=== PATIENT | female | born 1945 | race Caucasian/White ===

== ENCOUNTER 2021-03-13 10:38 | Emergency (ER) | payer MEDICARE ==
[2021-03-13 14:28] LABS: HEMOGLOBIN 14.4 gm/dl (12.3-15.3); RED BLOOD COUNT 4.75 M/UL (4.00-5.10)
[2021-03-13 15:10] LABS: BUN/CREATININE RATIO 22 (0-10)
[2021-03-13] MEDS ORDERED: VIBRAMYCIN 100100 MG PO (16:49)
== END 2021-03-13 17:35 | disposition home or self-care (01) ==
LOC: ER1 10:38
PROVIDERS: Emergency Medicine
DX: E11.628 Type 2 diabetes mellitus with other skin complications (principal); L08.9 Local infection of the skin and subcutaneous tissue, unspecified; I10 Essential (primary) hypertension
CPT/HCPCS: 73630; 80053; 85025; 85652; 86140; 87040; 96374; 96375; 99283; J3370; J7070

== ENCOUNTER → 2021-03-23 | Outpatient (CLI) | payer MEDICARE ==
[~2021-03-23] MED LIST: VIBRAMYCIN 100100 MG PO
== END | disposition home or self-care (01) ==
LOC: WCC 15:30
PROC: 0JBR0ZZ Excision of Left Foot Subcutaneous Tissue and Fascia, Open Approach (ICD-10-PCS; principal; 2021-03-23)
DX: E11.621 Type 2 diabetes mellitus with foot ulcer (principal); L97.522 Non-pressure chronic ulcer of other part of left foot with fat layer exposed; E11.40 Type 2 diabetes mellitus with diabetic neuropathy, unspecified; E11.36 Type 2 diabetes mellitus with diabetic cataract; H26.9 Unspecified cataract; H40.9 Unspecified glaucoma; I10 Essential (primary) hypertension; R26.2 Difficulty in walking, not elsewhere classified; Z88.0 Allergy status to penicillin; Z88.2 Allergy status to sulfonamides; Z87.891 Personal history of nicotine dependence; Z79.4 Long term (current) use of insulin; Z79.2 Long term (current) use of antibiotics; Z79.899 Other long term (current) drug therapy; Z92.3 Personal history of irradiation

== ENCOUNTER → 2021-03-30 | Outpatient (CLI) | payer MEDICARE | END | disposition home or self-care (01) | LOC: WCC 09:37 | PROC: 0JBR0ZZ Excision of Left Foot Subcutaneous Tissue and Fascia, Open Approach (ICD-10-PCS; principal; 2021-03-30) | DX: E11.621 Type 2 diabetes mellitus with foot ulcer (principal); L97.522 Non-pressure chronic ulcer of other part of left foot with fat layer exposed; E11.40 Type 2 diabetes mellitus with diabetic neuropathy, unspecified; E11.36 Type 2 diabetes mellitus with diabetic cataract; H26.9 Unspecified cataract; H40.9 Unspecified glaucoma; I10 Essential (primary) hypertension; Z79.2 Long term (current) use of antibiotics; Z79.84 Long term (current) use of oral hypoglycemic drugs; Z79.899 Other long term (current) drug therapy; Z88.0 Allergy status to penicillin; Z88.2 Allergy status to sulfonamides ==

== ENCOUNTER → 2021-04-07 | Outpatient (CLI) | payer MEDICARE | LOC: EXRD 11:15 | DX: E11.621 Type 2 diabetes mellitus with foot ulcer (principal); L97.529 Non-pressure chronic ulcer of other part of left foot with unspecified severity; L97.519 Non-pressure chronic ulcer of other part of right foot with unspecified severity; I74.3 Embolism and thrombosis of arteries of the lower extremities | CPT/HCPCS: 93925 ==

== ENCOUNTER → 2021-04-13 | Outpatient (CLI) | payer MEDICARE | END | disposition home or self-care (01) | LOC: WCC 14:14 | PROC: 0JBR0ZZ Excision of Left Foot Subcutaneous Tissue and Fascia, Open Approach (ICD-10-PCS; principal; 2021-04-13) | DX: E11.621 Type 2 diabetes mellitus with foot ulcer (principal); L97.522 Non-pressure chronic ulcer of other part of left foot with fat layer exposed; E11.40 Type 2 diabetes mellitus with diabetic neuropathy, unspecified; E11.51 Type 2 diabetes mellitus with diabetic peripheral angiopathy without gangrene; E11.36 Type 2 diabetes mellitus with diabetic cataract; H26.9 Unspecified cataract; I10 Essential (primary) hypertension; Z79.84 Long term (current) use of oral hypoglycemic drugs; Z79.899 Other long term (current) drug therapy; Z88.0 Allergy status to penicillin; Z88.2 Allergy status to sulfonamides ==

== ENCOUNTER → 2021-04-20 | Outpatient (CLI) | payer MEDICARE | END | disposition home or self-care (01) | LOC: WCC 14:22 | PROC: 0JBR0ZZ Excision of Left Foot Subcutaneous Tissue and Fascia, Open Approach (ICD-10-PCS; principal; 2021-04-20) | DX: E11.621 Type 2 diabetes mellitus with foot ulcer (principal); L97.525 Non-pressure chronic ulcer of other part of left foot with muscle involvement without evidence of necrosis; E11.40 Type 2 diabetes mellitus with diabetic neuropathy, unspecified; E11.51 Type 2 diabetes mellitus with diabetic peripheral angiopathy without gangrene; E11.36 Type 2 diabetes mellitus with diabetic cataract; H26.9 Unspecified cataract; I10 Essential (primary) hypertension; Z79.84 Long term (current) use of oral hypoglycemic drugs; Z79.899 Other long term (current) drug therapy; Z88.0 Allergy status to penicillin; Z88.2 Allergy status to sulfonamides ==

== ENCOUNTER → 2021-05-04 | Outpatient (CLI) | payer MEDICARE | END | disposition home or self-care (01) | LOC: WCC 14:40 | PROC: 0JBR0ZZ Excision of Left Foot Subcutaneous Tissue and Fascia, Open Approach (ICD-10-PCS; principal; 2021-05-04) | DX: E11.621 Type 2 diabetes mellitus with foot ulcer (principal); L97.525 Non-pressure chronic ulcer of other part of left foot with muscle involvement without evidence of necrosis; E11.51 Type 2 diabetes mellitus with diabetic peripheral angiopathy without gangrene; E11.40 Type 2 diabetes mellitus with diabetic neuropathy, unspecified; E11.36 Type 2 diabetes mellitus with diabetic cataract; H26.9 Unspecified cataract; H40.9 Unspecified glaucoma; I10 Essential (primary) hypertension; Z79.84 Long term (current) use of oral hypoglycemic drugs; Z79.899 Other long term (current) drug therapy; Z88.0 Allergy status to penicillin; Z88.2 Allergy status to sulfonamides ==

== ENCOUNTER → 2021-05-18 | Outpatient (CLI) | payer MEDICARE | LOC: WCC 14:06 | DX: E11.621 Type 2 diabetes mellitus with foot ulcer (principal); L97.509 Non-pressure chronic ulcer of other part of unspecified foot with unspecified severity; I10 Essential (primary) hypertension; E11.40 Type 2 diabetes mellitus with diabetic neuropathy, unspecified; R26.2 Difficulty in walking, not elsewhere classified; I70.245 Atherosclerosis of native arteries of left leg with ulceration of other part of foot | CPT/HCPCS: 97597 ==

== ENCOUNTER → 2021-05-25 | Outpatient (CLI) | payer MEDICARE | END | disposition home or self-care (01) | LOC: WCC 13:27 | PROC: 0JBR0ZZ Excision of Left Foot Subcutaneous Tissue and Fascia, Open Approach (ICD-10-PCS; principal; 2021-05-25) | DX: E11.621 Type 2 diabetes mellitus with foot ulcer (principal); L97.522 Non-pressure chronic ulcer of other part of left foot with fat layer exposed; E11.51 Type 2 diabetes mellitus with diabetic peripheral angiopathy without gangrene; I70.245 Atherosclerosis of native arteries of left leg with ulceration of other part of foot; E11.40 Type 2 diabetes mellitus with diabetic neuropathy, unspecified; I10 Essential (primary) hypertension; E11.36 Type 2 diabetes mellitus with diabetic cataract; H26.9 Unspecified cataract; Z88.0 Allergy status to penicillin; Z88.2 Allergy status to sulfonamides; Z79.84 Long term (current) use of oral hypoglycemic drugs; Z79.899 Other long term (current) drug therapy ==

== ENCOUNTER 2021-06-02 15:28 | Emergency (ER) | payer MEDICARE ==
[2021-06-02 16:43] LABS: HEMOGLOBIN 13.6 gm/dl (12.3-15.3); RED BLOOD COUNT 4.64 M/UL (4.00-5.10); WHITE BLOOD COUNT 9.3 K/UL (4.5-11.0)
[2021-06-02 17:20] LABS: BUN/CREATININE RATIO 13 (0-10)
== END 2021-06-02 22:17 | disposition home or self-care (01) ==
LOC: ER1 15:28 → CDU 19:07 → ER1 22:17
PROVIDERS: Emergency Medicine
DX: T42.4X1A Poisoning by benzodiazepines, accidental (unintentional), initial encounter (principal); R55 Syncope and collapse; E11.9 Type 2 diabetes mellitus without complications; Z20.822 Contact with and (suspected) exposure to COVID-19; X58.XXXA Exposure to other specified factors, initial encounter; Z95.9 Presence of cardiac and vascular implant and graft, unspecified
CPT/HCPCS: 70450; 80053; 80307; 81001; 82550; 82553; 83605; 83874; 84484; 85025; 93005; 99285; U0002

== ENCOUNTER → 2021-06-08 | Outpatient (CLI) | payer MEDICARE | END | disposition home or self-care (01) | LOC: WCC 09:22 | PROC: 0KBW0ZZ Excision of Left Foot Muscle, Open Approach (ICD-10-PCS; principal; 2021-06-08) | PROC: 0JBQ0ZZ Excision of Right Foot Subcutaneous Tissue and Fascia, Open Approach (ICD-10-PCS; principal; 2021-06-08) | DX: E11.621 Type 2 diabetes mellitus with foot ulcer (principal); L97.825 Non-pressure chronic ulcer of other part of left lower leg with muscle involvement without evidence of necrosis; L97.512 Non-pressure chronic ulcer of other part of right foot with fat layer exposed; E11.51 Type 2 diabetes mellitus with diabetic peripheral angiopathy without gangrene; I70.245 Atherosclerosis of native arteries of left leg with ulceration of other part of foot; I10 Essential (primary) hypertension; E11.40 Type 2 diabetes mellitus with diabetic neuropathy, unspecified; Z79.84 Long term (current) use of oral hypoglycemic drugs; Z79.899 Other long term (current) drug therapy; Z88.0 Allergy status to penicillin; Z88.2 Allergy status to sulfonamides; E11.36 Type 2 diabetes mellitus with diabetic cataract; H26.9 Unspecified cataract ==

== ENCOUNTER → 2021-06-15 | Outpatient (CLI) | payer MEDICARE | END | disposition home or self-care (01) | LOC: WCC 09:23 | PROC: 0JDR0ZZ Extraction of Left Foot Subcutaneous Tissue and Fascia, Open Approach (ICD-10-PCS; principal; 2021-06-15) | PROC: 0JDQ0ZZ Extraction of Right Foot Subcutaneous Tissue and Fascia, Open Approach (ICD-10-PCS; 2021-06-15) | DX: E11.621 Type 2 diabetes mellitus with foot ulcer (principal); L97.522 Non-pressure chronic ulcer of other part of left foot with fat layer exposed; L97.512 Non-pressure chronic ulcer of other part of right foot with fat layer exposed; E11.51 Type 2 diabetes mellitus with diabetic peripheral angiopathy without gangrene; I70.245 Atherosclerosis of native arteries of left leg with ulceration of other part of foot; I10 Essential (primary) hypertension; E11.40 Type 2 diabetes mellitus with diabetic neuropathy, unspecified; E11.36 Type 2 diabetes mellitus with diabetic cataract; H26.9 Unspecified cataract; Z79.84 Long term (current) use of oral hypoglycemic drugs; Z79.899 Other long term (current) drug therapy; Z88.0 Allergy status to penicillin; Z88.2 Allergy status to sulfonamides ==

== ENCOUNTER → 2021-06-22 | Outpatient (CLI) | payer MEDICARE | END | disposition home or self-care (01) | LOC: WCC 08:29 | PROC: 0JBP0ZZ Excision of Left Lower Leg Subcutaneous Tissue and Fascia, Open Approach (ICD-10-PCS; principal; 2021-06-22) | PROC: 0JBN0ZZ Excision of Right Lower Leg Subcutaneous Tissue and Fascia, Open Approach (ICD-10-PCS; 2021-06-22) | DX: E11.621 Type 2 diabetes mellitus with foot ulcer (principal); L97.525 Non-pressure chronic ulcer of other part of left foot with muscle involvement without evidence of necrosis; L97.512 Non-pressure chronic ulcer of other part of right foot with fat layer exposed; E11.40 Type 2 diabetes mellitus with diabetic neuropathy, unspecified; E11.51 Type 2 diabetes mellitus with diabetic peripheral angiopathy without gangrene; I10 Essential (primary) hypertension; Z79.84 Long term (current) use of oral hypoglycemic drugs; Z79.899 Other long term (current) drug therapy; Z88.0 Allergy status to penicillin; Z88.2 Allergy status to sulfonamides ==

== ENCOUNTER → 2021-06-29 | Outpatient (CLI) | payer MEDICARE | END | disposition home or self-care (01) | LOC: WCC 08:38 | PROC: 0JBR0ZZ Excision of Left Foot Subcutaneous Tissue and Fascia, Open Approach (ICD-10-PCS; principal; 2021-06-29) | PROC: 0JBQ0ZZ Excision of Right Foot Subcutaneous Tissue and Fascia, Open Approach (ICD-10-PCS; 2021-06-29) | DX: E11.621 Type 2 diabetes mellitus with foot ulcer (principal); L97.525 Non-pressure chronic ulcer of other part of left foot with muscle involvement without evidence of necrosis; L97.512 Non-pressure chronic ulcer of other part of right foot with fat layer exposed; E11.40 Type 2 diabetes mellitus with diabetic neuropathy, unspecified; E11.51 Type 2 diabetes mellitus with diabetic peripheral angiopathy without gangrene; I70.245 Atherosclerosis of native arteries of left leg with ulceration of other part of foot; E11.39 Type 2 diabetes mellitus with other diabetic ophthalmic complication; H40.9 Unspecified glaucoma; H42 Glaucoma in diseases classified elsewhere; I10 Essential (primary) hypertension; Z79.84 Long term (current) use of oral hypoglycemic drugs; Z79.899 Other long term (current) drug therapy; Z88.0 Allergy status to penicillin; Z88.2 Allergy status to sulfonamides ==

== ENCOUNTER → 2021-07-13 | Outpatient (CLI) | payer MEDICARE ==
[~2021-07-13] MED LIST changes: +ALPRAZOLAM0.5 MG PO; +ATENOLOL50 MG PO; +CLOPIDOGREL75 MG PO; +CYANOCOBAL1000 MCG/1 INJ; +GABAPENTIN600 MG PO; +GLIPIZIDE10 MG PO; +JANUVIA100 MG PO; +LEVOTHYROXINE75 MCG PO; +MACROBID 100 M100 M1 PO; +ONDANSETRON HCL4 MG PO; +SULINDAC200 MG PO
== END ==
LOC: WCC 08:43
DX: E11.621 Type 2 diabetes mellitus with foot ulcer (principal); L97.529 Non-pressure chronic ulcer of other part of left foot with unspecified severity
CPT/HCPCS: G0463

== ENCOUNTER 2021-07-24 09:59 | Inpatient (IN) | payer MEDICARE ==
[~2021-07-24] VITALS: Ht 149.9 cm; Wt 59.0 kg
[~2021-07-24 09:59] MED LIST changes: -ALPRAZOLAM0.5 MG PO; -ATENOLOL50 MG PO; -CLOPIDOGREL75 MG PO; -CYANOCOBAL1000 MCG/1 INJ; -GABAPENTIN600 MG PO; -GLIPIZIDE10 MG PO; -JANUVIA100 MG PO; -LEVOTHYROXINE75 MCG PO; -MACROBID 100 M100 M1 PO; -ONDANSETRON HCL4 MG PO; -SULINDAC200 MG PO
[2021-07-24 11:40] LABS: HEMOGLOBIN 13.2 gm/dl (12.3-15.3); RED BLOOD COUNT 4.85 M/UL (4.00-5.10); WHITE BLOOD COUNT 4.8 K/UL (4.5-11.0)
[2021-07-24 12:08] LABS: BUN/CREATININE RATIO 26 (0-10)
[2021-07-24] MEDS ORDERED: MACROBID 100 M100 M1 PO (14:31)
[2021-07-24] MEDS ORDERED: ONDANSETRON HCL4 MG PO (14:32)
[2021-07-24] MEDS ORDERED: ALPRAZOLAM0.5 MG PO (14:33)
[2021-07-24] MEDS ORDERED: ATENOLOL50 MG PO (14:33)
[2021-07-24] MEDS ORDERED: CLOPIDOGREL75 MG PO (14:33)
[2021-07-24] MEDS ORDERED: CYANOCOBAL1000 MCG/1 INJ (14:36)
[2021-07-24] MEDS ORDERED: GABAPENTIN600 MG PO (14:36)
[2021-07-24] MEDS ORDERED: LEVOTHYROXINE75 MCG PO (14:40)
[2021-07-24] MEDS ORDERED: GLIPIZIDE10 MG PO (14:40)
[2021-07-24] MEDS ORDERED: JANUVIA100 MG PO (14:41)
[2021-07-24] MEDS ORDERED: SULINDAC200 MG PO (14:41)
[2021-07-25 05:40] LABS: HEMOGLOBIN 11.9 gm/dl (12.3-15.3)
[2021-07-25 05:45] LABS: RED BLOOD COUNT 4.32 M/UL (4.00-5.10); WHITE BLOOD COUNT 3.3 K/UL (4.5-11.0)
[2021-07-25 06:12] LABS: BUN/CREATININE RATIO 32 (0-10)
[2021-07-26 08:57] LABS: HEMOGLOBIN 13.3 gm/dl (12.3-15.3)
[2021-07-26 08:58] LABS: RED BLOOD COUNT 4.96 M/UL (4.00-5.10); WHITE BLOOD COUNT 6.3 K/UL (4.5-11.0)
[2021-07-26 09:35] LABS: BUN/CREATININE RATIO 50 (0-10)
--- NOTE | 2021-07-26 17:54 | NUR ---
1445- NOTIFIED DR GUERRIER OF HYPOTENSION 76/38 WHILE ON BSC. PATIENTS BP 101/49 WHEN PUT BACK TO BED. NEW ORDER NOTED.
[2021-07-27 08:27] LABS: HEMOGLOBIN 12.7 gm/dl (12.3-15.3); RED BLOOD COUNT 4.64 M/UL (4.00-5.10); WHITE BLOOD COUNT 5.7 K/UL (4.5-11.0)
[2021-07-27 08:51] LABS: BUN/CREATININE RATIO 54 (0-10)
--- NOTE | 2021-07-27 14:53 | NUR ---
PT REFUSED TO WORK WITH PT THIS AM. SPOKE WITH PT WHO STATED SHE DIDN'T FEEL LIKE WORKING WITH THEM TODAY. MD AWARE AND WANTING A RE-EVAL FOR DISCHARGE PURPOSES. SPOKE WITH PT WHO DOES NOT WANT [facility] PLAC[facility] FOR REHAB. ENCOURAGED HER TO WORK WITH PT IN AM TO SEE THEIR RECOMMENDATIONS FOR POSSIBLE DC TOMORROW AM. DISCUSSED WITH SENIOR UNDERWRITER RE: DC PLANS FOR AM. WILL DISCUSS WITH PT'S DAUGHTER SAVANAH BOYCE WHEN SHE CALLS FOR AN UPDATE THIS AFTERNOON
[2021-07-28 05:00] LABS: HEMOGLOBIN 13.7 gm/dl (12.3-15.3); RED BLOOD COUNT 4.96 M/UL (4.00-5.10)
[2021-07-28 05:01] LABS: WHITE BLOOD COUNT 9.4 K/UL (4.5-11.0)
[2021-07-28 05:31] LABS: BUN/CREATININE RATIO 49 (0-10)
--- NOTE | 2021-07-28 10:04 | NUR ---
WHILE ASSISTING PT TO RESTROOM, PT BECOME UNSTEADY. PT WAS SLID TO THE FLOOR PER NURSE AND STAFF ASSIST CALLED FOR HELP GETTING HER BACK TO BED. PT WITH SHALLOW RESP USING ABDOMINAL ACCESSORY MUSCLES. PT NOT RESPONDING VERBALLY WHILE SITTING IN FLOOR LEANED AGAINST NURSE'S LEGS. PT NOT FOLLOWING COMMANDS AT THIS TIME. PLACED BACK TO BED VIA NURSES X 2. O2 SAT 79% AT TIME OF BEING PLACED BACK TO BED. BP 151/63, R 22, HR 81. PT RESPONDING VERBALLY AND PHYSICALLY WHEN BACK IN BED. DEMANDING TO GET OOB TO GO TO RESTROOM, EXPLAINED TO PT THAT SHE ISN'T STEADY ENOUGH TO GET OOB AT THIS TIME. BEDPAN GIVEN. NOTIFIED
[2021-07-29 03:37] LABS: HEMOGLOBIN 12.2 gm/dl (12.3-15.3)
[2021-07-29 03:38] LABS: RED BLOOD COUNT 4.46 M/UL (4.00-5.10)
[2021-07-29 03:46] LABS: BUN/CREATININE RATIO 60 (0-10)
[2021-07-30 07:34] LABS: HEMOGLOBIN 12.6 gm/dl (12.3-15.3); RED BLOOD COUNT 4.65 M/UL (4.00-5.10); WHITE BLOOD COUNT 6.2 K/UL (4.5-11.0)
[2021-07-30 08:24] LABS: BUN/CREATININE RATIO 49 (0-10)
[2021-07-31 05:52] LABS: HEMOGLOBIN 11.6 gm/dl (12.3-15.3); RED BLOOD COUNT 4.24 M/UL (4.00-5.10); WHITE BLOOD COUNT 7.7 K/UL (4.5-11.0)
[2021-07-31 06:16] LABS: BUN/CREATININE RATIO 59 (0-10)
[2021-08-01 07:32] LABS: HEMOGLOBIN 13.1 gm/dl (12.3-15.3); WHITE BLOOD COUNT 7.5 K/UL (4.5-11.0)
[2021-08-01 07:33] LABS: RED BLOOD COUNT 4.76 M/UL (4.00-5.10)
[2021-08-01 07:49] LABS: BUN/CREATININE RATIO 48 (0-10)
[2021-08-02 04:31] LABS: HEMOGLOBIN 11.9 gm/dl (12.3-15.3); RED BLOOD COUNT 4.34 M/UL (4.00-5.10); WHITE BLOOD COUNT 6.3 K/UL (4.5-11.0)
[2021-08-02 05:11] LABS: BUN/CREATININE RATIO 46 (0-10)
[2021-08-03 07:39] LABS: HEMOGLOBIN 12.1 gm/dl (12.3-15.3); RED BLOOD COUNT 4.47 M/UL (4.00-5.10); WHITE BLOOD COUNT 6.2 K/UL (4.5-11.0)
[2021-08-03 07:40] LABS: BUN/CREATININE RATIO 36 (0-10)
[2021-08-04 04:05] LABS: BUN/CREATININE RATIO 31 (0-10)
--- NOTE | 2021-08-04 16:44 | NUR ---
1540: RN SPOKE WITH DR GUERRIER REGARDING BILATERAL WOUNDS, OK FOR NURSE TO ASK WOUND CARE CLINIC NURSE TO VISIT FOR RE-EVAL OF WOUND CARE. 1645: [employer] ROUTEMAN VISITS, WITH NO CHANGE TO WOUND CARE NEEDED AT THIS TIME. WOUND CARE COMPLETED ORDERED.
[2021-08-05 05:43] LABS: RED BLOOD COUNT 4.09 M/UL (4.00-5.10); WHITE BLOOD COUNT 7.7 K/UL (4.5-11.0)
[2021-08-05 06:03] LABS: BUN/CREATININE RATIO 36 (0-10)
[2021-08-06 08:31] LABS: BUN/CREATININE RATIO 25 (0-10)
[2021-08-06 09:46] LABS: HEMOGLOBIN 11.8 gm/dl (12.3-15.3); RED BLOOD COUNT 4.25 M/UL (4.00-5.10)
[2021-08-06 09:49] LABS: WHITE BLOOD COUNT 14.5 K/UL (4.5-11.0)
[2021-08-07 10:33] LABS: HEMOGLOBIN 11.6 gm/dl (12.3-15.3); RED BLOOD COUNT 4.24 M/UL (4.00-5.10); WHITE BLOOD COUNT 11.8 K/UL (4.5-11.0)
[2021-08-07 10:59] LABS: BUN/CREATININE RATIO 29 (0-10)
--- NOTE | 2021-08-08 08:08 | NUR ---
PATIENT O2 SATS IN 70'S THIS AM. RESPIRATORY CALLED. PATIENT PLACED ON AIRVO. PROVIDER NOTIFIED. STATED SHE WOULD BE HERE SOON. PATIENTS O2 SATS CONTINUED TO DECLINE. PATIENT SATTING IN 60'S WHEN PROVIDER CALLED. PATIENT CURRENTLY SATTING IN 50'S.
[2021-08-08 08:34] LABS: BUN/CREATININE RATIO 38 (0-10)
[2021-08-08 09:25] LABS: HEMOGLOBIN 11.4 gm/dl (12.3-15.3); RED BLOOD COUNT 4.17 M/UL (4.00-5.10); WHITE BLOOD COUNT 11.1 K/UL (4.5-11.0)
[2021-08-08 09:50] LABS: BUN/CREATININE RATIO 34 (0-10)
[2021-08-09 05:29] LABS: HEMOGLOBIN 9.4 gm/dl (12.3-15.3); RED BLOOD COUNT 3.45 M/UL (4.00-5.10)
[2021-08-09 06:02] LABS: BUN/CREATININE RATIO 50 (0-10)
== END 2021-08-10 05:04 | disposition expired | DRG 177 ==
LOC: ER1 09:59 → CDU 13:41 → PROG CARE 14:06 → MED SURG 4 14:06 → PROG CARE 08-08 14:05
PROVIDERS: Emergency Medicine; Internal Medicine; Physician Assistant Medical; ADMIT Internal Medicine
PROC: 8E0ZXY6 Isolation (ICD-10-PCS; 2021-07-24)
PROC: XW033E5 Introduction of Remdesivir Anti-infective into Peripheral Vein, Percutaneous Approach, New Technology Group 5 (ICD-10-PCS; 2021-07-24)
PROC: 3E0333Z Introduction of Anti-inflammatory into Peripheral Vein, Percutaneous Approach (ICD-10-PCS; 2021-07-24)
PROC: 5A0955A Assistance with Respiratory Ventilation, Greater than 96 Consecutive Hours, High Flow/Velocity Cannula (ICD-10-PCS; 2021-07-27)
PROC: 0T9B70Z Drainage of Bladder with Drainage Device, Via Natural or Artificial Opening (ICD-10-PCS; principal; 2021-08-08)
PROC: 3E033XZ Introduction of Vasopressor into Peripheral Vein, Percutaneous Approach (ICD-10-PCS; 2021-08-08)
PROC: 5A09457 Assistance with Respiratory Ventilation, 24-96 Consecutive Hours, Continuous Positive Airway Pressure (ICD-10-PCS; 2021-08-08)
DX: U07.1 COVID-19 (principal); J12.82 Pneumonia due to coronavirus disease 2019; J15.9 Unspecified bacterial pneumonia; A41.9 Sepsis, unspecified organism; R65.21 Severe sepsis with septic shock; G93.41 Metabolic encephalopathy; J80 Acute respiratory distress syndrome; J69.0 Pneumonitis due to inhalation of food and vomit; I21.A1 Myocardial infarction type 2; C15.9 Malignant neoplasm of esophagus, unspecified; I10 Essential (primary) hypertension; E11.65 Type 2 diabetes mellitus with hyperglycemia; T38.0X5A Adverse effect of glucocorticoids and synthetic analogues, initial encounter; Z66 Do not resuscitate; R33.9 Retention of urine, unspecified; R00.1 Bradycardia, unspecified; R33.8 Other retention of urine; R53.81 Other malaise; E11.51 Type 2 diabetes mellitus with diabetic peripheral angiopathy without gangrene; F17.200 Nicotine dependence, unspecified, uncomplicated; I73.9 Peripheral vascular disease, unspecified; E11.621 Type 2 diabetes mellitus with foot ulcer; L97.529 Non-pressure chronic ulcer of other part of left foot with unspecified severity; Z95.828 Presence of other vascular implants and grafts; Z88.2 Allergy status to sulfonamides; Z88.0 Allergy status to penicillin; Z83.3 Family history of diabetes mellitus; Z51.5 Encounter for palliative care
CPT/HCPCS: ECHO; 0240U; 36415; 36600; 71045; 71275; 80048; 80053; 80076; 80202; 81001; 82550; 82553; 82803; 82962; 83036; 83735; 83874; 83880; 84484; 85025; 85027; 85379; 86140; 87040; 87081; 87086; 92610; 93005; 93306; 94640; 94660; 94760; 97110; 97110-GP-CQ; 97161; 97530; 97530-GP-CQ; 99285; J0248; J0692; J0696; J1100; J1650; J1956; J2020; J2270; J2920; J3370; J7030; Q9967